=== PATIENT | female | born 1970 | race Caucasian/White ===

== ENCOUNTER 2024-02-22 15:28 | Emergency (ER) | payer OTHER ==
[2024-02-22 15:58] LABS: Bilirubin Negative (Negative); Blood, Urine Small (Negative); Glucose, Urine (Dipstick) 500 mg/dL (Negative); Ketone, Urine Negative (Negative); Leukocyte Large (Negative); Nitrite Positive (Negative); Protein, Urine (Dipstick) Negative (Neg-Trace); Urobilinogen 0.2 mg/dL (Less than 2)
[2024-02-22 15:59] LABS: Clarity Cloudy (Clear)
[2024-02-22 16:12] LABS: Bacteria/HPF 2+ HPF (None Seen); CAUTI Indications for Culture Alt mental st,lethar; WBC/HPF Greater Than 50 HPF (0-3)
[2024-02-22 16:13] LABS: Urine Culture Reflex Yes Yes
[2024-02-22 16:22] LABS: #Basophils 0.1 thou/uL (0.0-0.2); #Eosinphils 0.1 thou/uL (0.0-0.7); #Lymphocytes 2.7 thou/uL (1.20-3.40); #Monocytes 0.5 thou/uL (0.11-0.59); #Neutrophils 2.7 thou/uL (1.40-6.50); %Basophils 1.9 % (0.0-1.0); %Eosinophils 0.9 % (0.0-10.0); %Lymphocytes 44.3 % (21.0-51.0); %Monocytes 8.7 % (0.0-10.0); %Neutrophils 44.3 % (42.0-75.0); Hematocrit 41.4 % (36.0-47.0); Hemoglobin 12.2 g/dL (12.0-16.0); Mean Corpuscular HGB CONC 29.6 g/dL (32.0-36.0); Mean Corpuscular Hemoglobin 28.2 pg (27.0-31.0); Mean Corpuscular Volume 95.4 fl (78.0-98.0); Mean Platelet Volume 7.9 fL (7.4-10.4); Platelet Count 102 10x3/uL (130-400); RBC Distribution Width 14.9 % (11.5-14.5); Red Blood Cell (RBC) Count 4.34 mill/uL (4.20-5.40)
[2024-02-22 16:29] LABS: ALT (SGPT) Less than 7 U/L (8-55); AST (SGOT) 13 U/L (5-34); Alkaline Phosphatase 44 U/L (40-110); Anion Gap 14 mmol/L (10-20); BUN (Urea Nitrogen) 21 mg/dL (9.8-20.1); Bilirubin, Total 0.4 mg/dL (0.2-1.2); Calc. Creatinine Clearance 0 mL/min (70-130); Calcium 8.8 mg/dL (7.8-10.44); Carbon Dioxide 33 mmol/L (22-29); Chloride 104 mmol/L (98-107); Estimated GFR 57; Glucose 87 mg/dL (70-105); Potassium 4.8 mmol/L (3.5-5.1); Sodium 146 mmol/L (136-145)
[2024-02-22 16:36] LABS: Platelet Adequacy Comment Appears Decreased
[2024-02-22] MEDS ORDERED: Sodium Chloride 0.9% 100 ML ONE (16:40)
[2024-02-22] MEDS ORDERED: cefTRIAXone (ROCEPHIN) 1 GM VIAL ONE (16:40)
== END 2024-02-22 18:55 ==
LOC: MADERS 15:28
DX: N39.0 Urinary tract infection, site not specified (principal); R53.1 Weakness; R45.851 Suicidal ideations; I10 Essential (primary) hypertension; E11.9 Type 2 diabetes mellitus without complications; F17.210 Nicotine dependence, cigarettes, uncomplicated
CPT/HCPCS: 36415; 51701; 70450; 80053; 81001; 85025; 87077; 87086; 87186; 93005; 96365; J0696; J3490

== ENCOUNTER 2024-02-23 21:40 | Emergency (ER) | payer OTHER ==
[2024-02-23 23:24] LABS: #Basophils 0.1 thou/uL (0.0-0.2); #Eosinphils 0.1 thou/uL (0.0-0.7); #Lymphocytes 2.5 thou/uL (1.20-3.40); #Monocytes 0.5 thou/uL (0.11-0.59); #Neutrophils 3.5 thou/uL (1.40-6.50); %Eosinophils 1.5 % (0.0-10.0); %Lymphocytes 36.7 % (21.0-51.0); %Monocytes 8.1 % (0.0-10.0); %Neutrophils 52.7 % (42.0-75.0); Anion Gap 15 mmol/L (10-20); BUN (Urea Nitrogen) 18 mg/dL (9.8-20.1); Calc. Creatinine Clearance 0 mL/min (70-130); Calcium 9.2 mg/dL (7.8-10.44); Carbon Dioxide 29 mmol/L (22-29); Chloride 103 mmol/L (98-107); Estimated GFR 60; Glucose 101 mg/dL (70-105); Hematocrit 46.9 % (36.0-47.0); Mean Corpuscular HGB CONC 29.8 g/dL (32.0-36.0); Mean Corpuscular Hemoglobin 28.6 pg (27.0-31.0); Mean Corpuscular Volume 95.8 fl (78.0-98.0); Mean Platelet Volume 7.7 fL (7.4-10.4); Platelet Adequacy Comment Appears Decreased; Platelet Count 111 10x3/uL (130-400); RBC Distribution Width 15.4 % (11.5-14.5); Sodium 143 mmol/L (136-145); White Blood Cell (WBC) Count 6.7 10x3/uL (4.8-10.8)
== END 2024-02-24 00:55 ==
LOC: MADERS 21:40
DX: R41.82 Altered mental status, unspecified (principal); N39.0 Urinary tract infection, site not specified; K21.9 Gastro-esophageal reflux disease without esophagitis; E11.9 Type 2 diabetes mellitus without complications; I10 Essential (primary) hypertension; F17.210 Nicotine dependence, cigarettes, uncomplicated; Z79.82 Long term (current) use of aspirin; Z79.899 Other long term (current) drug therapy; Z79.4 Long term (current) use of insulin
CPT/HCPCS: 36415; 80048; 85025; 99285

== ENCOUNTER 2024-06-26 10:32 | Emergency (ER) | payer OTHER ==
[2024-06-26 10:58] LABS: Bilirubin Negative (Negative); Blood, Urine Small (Negative); Glucose, Urine (Dipstick) >=1000 mg/dL (Negative); Ketone, Urine Trace mg/dL (Negative); Leukocyte Small (Negative); Nitrite Negative (Negative); Protein, Urine (Dipstick) 30 mg/dL (Neg-Trace); Specific Gravity, Urine 1.015 (1.005-1.030)
[2024-06-26 11:03] LABS: Clarity Cloudy (Clear)
[2024-06-26 11:09] LABS: Bacteria/HPF Rare-Few HPF (None Seen); CAUTI Indications for Culture Alt mental st,lethar; RBC/HPF 0-3 HPF (0-3); WBC/HPF Greater Than 50 HPF (0-3); Yeast-Budding 2+ HPF (None Seen); Yeast-Hyphae Rare HPF (None Seen)
[2024-06-26 11:10] LABS: Urine Culture Reflex Yes Yes
[2024-06-26 11:13] LABS: Anion Gap 16 mmol/L (10-20); BUN (Urea Nitrogen) 28 mg/dL (9.8-20.1); Calc. Creatinine Clearance 0 mL/min (70-130); Calcium 8.8 mg/dL (7.8-10.44); Carbon Dioxide 26 mmol/L (22-29); Chloride 104 mmol/L (98-107); Estimated GFR 50; Glucose 260 mg/dL (70-105); Potassium 4.5 mmol/L (3.5-5.1); Sodium 141 mmol/L (136-145)
[2024-06-26 11:16] LABS: Band 1 % (5-11); Eosinophils 3 % (0-10); Hematocrit 36.7 % (36.0-47.0); Hemoglobin 11.3 g/dL (12.0-16.0); Lymphocytes 12 % (21-51); MDiff Complete? YES; Manual Diff?? YES; Mean Corpuscular HGB CONC 30.9 g/dL (32.0-36.0); Mean Corpuscular Hemoglobin 29.6 pg (27.0-31.0); Mean Corpuscular Volume 95.8 fl (78.0-98.0); Monocytes 5 % (0-10); Neutrophil 73 % (42-75); Platelet Count 142 10x3/uL (130-400); RBC Distribution Width 14.8 % (11.5-14.5); Reactive Lymphocytes 6 % (0-10); Red Blood Cell (RBC) Count 3.83 mill/uL (4.20-5.40); White Blood Cell (WBC) Count 9.6 10x3/uL (4.8-10.8)
[2024-06-26 11:17] LABS: Platelet Adequacy Comment Appears Adequate
[2024-06-26] MEDS ORDERED: Fluconazole 100 MG TAB ONE (11:31)
== END 2024-06-26 15:01 ==
LOC: MADERS 10:32
DX: B37.31 Acute candidiasis of vulva and vagina (principal); E11.9 Type 2 diabetes mellitus without complications; E78.5 Hyperlipidemia, unspecified; I10 Essential (primary) hypertension; F17.210 Nicotine dependence, cigarettes, uncomplicated; Z95.1 Presence of aortocoronary bypass graft; Z79.4 Long term (current) use of insulin; Z79.899 Other long term (current) drug therapy; Z79.82 Long term (current) use of aspirin
CPT/HCPCS: 36416; 51701; 80048; 81001; 85025; 87086

== ENCOUNTER 2025-05-29 23:17 | Outpatient (CLI) | payer MEDICAID, MEDICARE, OTHER ==
[2025-05-30 00:15] LABS: #Basophils 0.1 thou/uL (0.0-0.2); #Eosinophils 0.2 thou/uL (0.0-0.7); #Lymphocytes 3.2 thou/uL (1.20-3.40); #Monocytes 0.9 thou/uL (0.11-0.59); #Neutrophils 4.9 thou/uL (1.40-6.50); %Basophils 1.2 % (0.0-1.0); %Eosinophils 1.7 % (0.0-10.0); %Lymphocytes 34.4 % (21.0-51.0); %Monocytes 9.6 % (0.0-10.0); %Neutrophils 53.2 % (42.0-75.0); Hematocrit 43.7 % (36.0-47.0); Hemoglobin 13.9 g/dL (12.0-16.0); Mean Corpuscular Hemoglobin 30.6 pg (27.0-31.0); Mean Corpuscular Volume 95.8 fl (78.0-98.0); Platelet Count 185 10x3/uL (130-400); Red Blood Cell (RBC) Count 4.56 mill/uL (4.20-5.40); White Blood Cell (WBC) Count 9.3 10x3/uL (4.8-10.8)
[2025-05-30 00:46] LABS: ALT (SGPT) 7 U/L (Less than 34); Albumin 2.8 g/dL (3.1-4.5); Alkaline Phosphatase 50 U/L (40-110); Anion Gap 18 mmol/L (10-20); BUN (Urea Nitrogen) 19 mg/dL (9.8-20.1); Bilirubin, Total 0.3 mg/dL (0.3-1.2); Calc. Creatinine Clearance 0 mL/min (70-130); Carbon Dioxide 28 mmol/L (22-29); Chloride 101 mmol/L (98-107); Globulin 3.9 g/dL (2.4-3.5); Glucose 152 mg/dL (70-105); Potassium 4.7 mmol/L (3.5-5.1); Sodium 142 mmol/L (136-145)
[2025-05-30 00:48] LABS: AST (SGOT) 12 U/L (11-34); Calcium 8.8 mg/dL (7.8-10.44)
[2025-05-30 07:39] LABS: Glucose, Urine (Dipstick) >=1000 mg/dL (Negative); Leukocyte Moderate (Negative); Protein, Urine (Dipstick) Trace mg/dL (Neg-Trace); Specific Gravity, Urine 1.025 (1.005-1.030)
[2025-05-30 08:17] LABS: WBC/HPF Greater than 50 HPF (0-3)
[2025-05-30 08:18] LABS: Bacteria/HPF 3+ HPF (None Seen)
== END 2025-05-29 23:18 | disposition home or self-care (01) ==
LOC: MADLABSP 23:17
PROVIDERS: ATTEND Family Medicine
DX: R63.8 Other symptoms and signs concerning food and fluid intake (principal)
CPT/HCPCS: 80053; 81001; 85025; 87077; 87086; 87186

== ENCOUNTER 2025-05-30 11:22 | Emergency (ER) | payer OTHER ==
[2025-05-30 11:49] LABS: #Basophils 0.1 thou/uL (0.0-0.2); #Eosinophils 0.0 thou/uL (0.0-0.7); #Lymphocytes 3.0 thou/uL (1.20-3.40); #Monocytes 0.9 thou/uL (0.11-0.59); #Neutrophils 5.6 thou/uL (1.40-6.50); %Basophils 1.2 % (0.0-1.0); %Eosinophils 0.5 % (0.0-10.0); %Lymphocytes 31.2 % (21.0-51.0); %Monocytes 9.0 % (0.0-10.0); %Neutrophils 58.0 % (42.0-75.0); Hematocrit 46.4 % (36.0-47.0); Hemoglobin 14.5 g/dL (12.0-16.0); Mean Corpuscular Hemoglobin 30.2 pg (27.0-31.0); Mean Corpuscular Volume 96.7 fl (78.0-98.0); Platelet Count 195 10x3/uL (130-400); Red Blood Cell (RBC) Count 4.80 mill/uL (4.20-5.40); White Blood Cell (WBC) Count 9.7 10x3/uL (4.8-10.8)
[2025-05-30 12:09] LABS: ALT (SGPT) Less than 7 U/L (Less than 34); AST (SGOT) 10 U/L (11-34); Albumin 3.0 g/dL (3.1-4.5); Alkaline Phosphatase 50 U/L (40-110); Anion Gap 17 mmol/L (10-20); BUN (Urea Nitrogen) 25 mg/dL (9.8-20.1); Bilirubin, Total 0.4 mg/dL (0.3-1.2); Calc. Creatinine Clearance 0 mL/min (70-130); Calcium 9.1 mg/dL (7.8-10.44); Carbon Dioxide 28 mmol/L (22-29); Chloride 100 mmol/L (98-107); Globulin 4.4 g/dL (2.4-3.5); Glucose 282 mg/dL (70-105); Potassium 4.5 mmol/L (3.5-5.1); Sodium 140 mmol/L (136-145)
[2025-05-30 12:09] LABS: Glucose, Urine (Dipstick) >=1000 mg/dL (Negative); Leukocyte Small (Negative); Protein, Urine (Dipstick) Trace mg/dL (Neg-Trace); Specific Gravity, Urine 1.020 (1.005-1.030)
[2025-05-30] MEDS ORDERED: Acetaminophen 500 MG TAB ONE (12:11)
[2025-05-30 12:17] LABS: Bacteria/HPF 3+ HPF (None Seen); CAUTI Indications for Culture Alt mental st,lethar; WBC/HPF Greater than 50 HPF (0-3)
[2025-05-30 12:18] LABS: Bicarbonate (HCO3v) 31.8 mmol/L (22.0-28.0); CO2 Tension (PvCO2) 48.1 mmHg (42.0-51.0); Calcium, Ionized 1.17 mmol/L (1.15-1.33); Chloride 102 mmol/L (98-107); Hemoglobin - Calc 15.5 g/dL (12.0-16.0); Potassium 4.4 mmol/L (3.5-5.1); Sodium 141 mmol/L (138-145); T. Carbon Dioxide 33.3 mmol/L (22.0-28.0); vO2 Saturation-calc 99.5 % (60.0-85.0)
[2025-05-30 12:19] LABS: Urine Culture Reflex Yes Yes
== END 2025-05-30 16:00 ==
LOC: MADERS 11:22
DX: N39.0 Urinary tract infection, site not specified (principal); R40.0 Somnolence; I12.9 Hypertensive chronic kidney disease with stage 1 through stage 4 chronic kidney disease, or unspecified chronic kidney disease; N18.30 Chronic kidney disease, stage 3 unspecified; E66.01 Morbid (severe) obesity due to excess calories; I25.10 Atherosclerotic heart disease of native coronary artery without angina pectoris; E78.5 Hyperlipidemia, unspecified; Z79.82 Long term (current) use of aspirin; Z79.899 Other long term (current) drug therapy; Z79.4 Long term (current) use of insulin; Z87.891 Personal history of nicotine dependence; Z86.73 Personal history of transient ischemic attack (TIA), and cerebral infarction without residual deficits; Z95.5 Presence of coronary angioplasty implant and graft
CPT/HCPCS: 36415; 51701; 80053; 82330; 82803; 83605; 85025; 87040; 87077; 87086; 87186; 93005; 99285

== ENCOUNTER 2025-06-14 13:38 | Outpatient (CLI) | payer MEDICAID, OTHER | END 2025-06-14 13:39 | disposition home or self-care (01) | LOC: MADLAB 13:38 | PROVIDERS: ATTEND Nurse Practitioner Primary Care | DX: F03.90 Unspecified dementia, unspecified severity, without behavioral disturbance, psychotic disturbance, mood disturbance, and anxiety (principal); M24.542 Contracture, left hand | CPT/HCPCS: 80164; 80177 ==

== ENCOUNTER 2025-09-21 04:45 | Outpatient (CLI) | payer OTHER ==
[2025-09-21 05:05] LABS: Hematocrit 38.6 % (36.0-47.0); Hemoglobin 12.2 g/dL (12.0-16.0); MDiff Complete? YES; Mean Corpuscular Hemoglobin 29.7 pg (27.0-31.0); Mean Corpuscular Volume 93.9 fl (78.0-98.0); Platelet Count 193 10x3/uL (130-400); Red Blood Cell (RBC) Count 4.11 mill/uL (4.20-5.40); White Blood Cell (WBC) Count 8.8 10x3/uL (4.8-10.8)
[2025-09-21 05:18] LABS: ALT (SGPT) Less than 7 U/L (Less than 34); AST (SGOT) 6 U/L (11-34); Albumin 3.0 g/dL (3.1-4.5); Alkaline Phosphatase 55 U/L (40-110); Anion Gap 17 mmol/L (10-20); BUN (Urea Nitrogen) 18 mg/dL (9.8-20.1); Bilirubin, Total 0.2 mg/dL (0.3-1.2); Calc. Creatinine Clearance 0 mL/min (70-130); Calcium 8.5 mg/dL (7.8-10.44); Carbon Dioxide 24 mmol/L (22-29); Chloride 105 mmol/L (98-107); Globulin 3.3 g/dL (2.4-3.5); Glucose 133 mg/dL (70-105); Potassium 4.6 mmol/L (3.5-5.1); Sodium 141 mmol/L (136-145)
== END 2025-09-21 04:46 | disposition home or self-care (01) ==
LOC: MADLAB 04:45
PROVIDERS: ATTEND Nurse Practitioner Primary Care
DX: I12.9 Hypertensive chronic kidney disease with stage 1 through stage 4 chronic kidney disease, or unspecified chronic kidney disease (principal); N18.32 Chronic kidney disease, stage 3b; E87.6 Hypokalemia
CPT/HCPCS: 80053; 80164; 80177; 83036; 85025